=== PATIENT | male | born 1980 | race Caucasian/White ===

== ENCOUNTER 2016-09-08 20:15 | Emergency (ER) | payer BC ==
--- NOTE | 2016-09-09 09:42 | XR ---
EXAM TYPE: LUMBAR SPINE X RAY SERIES COMPARISON: 10/19/2014 HISTORY: Back pain TECHNIQUE: 4 views are submitted. FINDINGS: Alignment is anatomic. The pedicles are intact. The transverse processes are intact. There is susp icion of unilateral spondylolysis on the right. There is a grade 1 anterolisthesis. IMPRESSION: 1. Spondylolysis L5 with grade 1 anterolisthesis which is slightly progressed from the previous exam. Correlate with MRI.
== END 2016-09-08 22:26 | disposition home or self-care (01) ==
LOC: EC 20:15
DX: M54.5 Low back pain (principal); G89.29 Other chronic pain; X50.0XXA Overexertion from strenuous movement or load, initial encounter; Y92.009 Unspecified place in unspecified non-institutional (private) residence as the place of occurrence of the external cause; Y93.89 Activity, other specified
CPT/HCPCS: 72110; 99283

== ENCOUNTER 2016-10-19 18:16 | Emergency (ER) | payer BC ==
[2016-10-19 18:22] VITALS: BP 125/90; PULSE 90; RESP 18; TEMP 97.8
--- NOTE | 2016-10-19 18:43 | XR ---
EXAMINATION TYPE: XR hand complete RT DATE OF EXAM: 10/19/2016 COMPARISON: NONE HISTORY: Pain TECHNIQUE: 3 views FINDINGS: There is callus formation related to healing fracture of the fifth metacarpal head. There i s displacement of a few millimeters. There is no dislocation. Joint spaces are normal. IMPRESSION: There is a healing fracture of the distal fifth metacarpal with slight impaction. No acut e fracture seen.
--- NOTE | 2016-10-19 19:04 | ED ---
Upper Extremity HPI - General Chief Complaint: Extremity Injury, Upper Stated Complaint: RT HAND INJURY Time Seen by Provider: 10/19/16 18:26 Source: patient Mode of arrival: ambulatory Limitations: no limitations - History of Present Illness Initial Comments: Patient is a 36-year-old right-handed white male presenting to the emergency department with complaints of right hand pain. Patient has a history of a fifth metacarpal fracture and states he had his cast removed a week ago. Patient states he tripped over a dog cable this morning around 8 AM and fell on his right hand. Patient is currently complaining of pain to his fifth metacarpal related 6 out of 10, described as sharp, exacerbated with movement, relieved at rest. Patient states he took tramadol prior to arrival with minimal relief. Patient denies chills, fevers, nausea, vomiting, shortness of breath, chest pain, abdominal pain, numbness or tingling. - Related Data Previous Rx's Medication Instructions Recorded traMADol HCl [Ultram] 50 mg PO Q6H PRN #12 tab 10/19/16 Allergies Allergy/AdvReac Type Severity Reaction Status Date / Time No Known Allergies Allergy Verified 10/19/16 18:46 Review of Systems ROS Statement: Those systems with pertinent positive or pertinent negative responses have been documented in the HPI. ROS Other: All systems not noted in ROS Statement are negative. Past Medical History Past Medical History: No Reported History History of Any Multi-Drug Resistant Organisms: None Reported Past Surgical History: No Surgical Hx Reported Past Psychological History: No Psychological Hx Reported Smoking Status: Never smoker Past Alcohol Use History: Occasional Past Drug Use History: None Reported General Exam Limitations: no limitations General appearance: alert, in no apparent distress Head exam: Present: atraumatic, normocephalic, normal inspection Eye exam: Present: normal appearance ENT exam: Present: normal exam, mucous membranes moist, normal external ear exam Neck exam: Present: normal inspection, full ROM. Absent: tenderness Respiratory exam: Present: normal lung sounds bilaterally. Absent: respiratory distress, wheezes, rales, rhonchi, stridor Cardiovascular Exam: Present: regular rate, normal rhythm, normal heart sounds. Absent: systolic murmur, diastolic murmur, rubs, gallop, clicks GI/Abdominal exam: Present: soft, normal bowel sounds. Absent: distended, tenderness, guarding, rebound, rigid Right Elbow exam: Present: normal inspection, full ROM. Absent: tenderness, swelling Forearm Wrist exam: Present: normal inspection, full ROM. Absent: tenderness, swelling Hand Wrist exam: Present: full ROM, tenderness (Tenderness to distal fifth metacarpal). Absent: swelling, ecchymosis, deformity, erythema Neuro motor exam: Present: wrist extension intact, thumb opposition intact, thumb IP flexion intact, thumb adduction intact, fingers 2-5 abduction intact Neurosensory exam: Present: 2-point discrimination, radial nerve intact, ulnar nerve intact, median nerve intact Vascular: Present: normal capillary refill, radial pulse, brachial pulse, ulnar pulse. Absent: vascular compromise Back exam: Present: normal inspection Neurological exam: Present: alert, oriented X3, normal gait. Absent: other (No focal deficits noted) Psychiatric exam: Present: normal affect, normal mood Skin exam: Present: warm, dry, intact, normal color Course Vital Signs 10/19/16 18:19 Temperature 97.8 F Pulse Rate 90 Respiratory 18 Rate Blood Pressure 125/90 O2 Sat by Pulse 97 Oximetry Medical Decision Making - Medical Decision Making Right hand injury with history of recent fifth metacarpal fracture. Right and x -ray with evidence of healing fracture of the distal fifth metacarpal with slight impaction, no acute fracture seen. Mt wrap applied to right hand. Patient instructed to follow-up with orthopedic service next week as already scheduled. Patient agrees with treatment plan. Return parameters and discharge instructions reviewed. - Radiology Data Radiology results: report reviewed X-ray right hand: There is callus formation related to healing fracture of the fifth metacarpal head. There is displacement of a few millimeters. There is no dislocation. Joint spaces are normal. Impression: Healing fracture of the distal fifth metacarpal with slight impaction. No acute fracture seen. Disposition Clinical Impression: Injury of right hand Disposition: HOME SELF-CARE Condition: Good Instructions: Hand Fracture (ED) Additional Instructions: Continue tramadol for pain as needed. Follow-up with orthopedic service on Saturday as are the schedule. Return to the emergency department with any new or worsening symptoms. Prescriptions: traMADol HCl [Ultram] 50 mg PO Q6H PRN #12 tab PRN Reason: Pain Referrals: None,Stated [Primary Care Provider] - 1-2 days [facility] [Provider Group] - 10/23/16 Time of Disposition: 19:04
== END 2016-10-19 19:10 | disposition home or self-care (01) ==
LOC: EC 18:16
DX: S69.91XA Unspecified injury of right wrist, hand and finger(s), initial encounter (principal); Z87.81 Personal history of (healed) traumatic fracture; W01.0XXA Fall on same level from slipping, tripping and stumbling without subsequent striking against object, initial encounter
CPT/HCPCS: 99283

== ENCOUNTER → 2016-10-19 | Outpatient (CLI) | payer BC ==
--- NOTE | 2016-10-19 18:49 | CT ---
EXAMINATION TYPE: CT lumbar spine wo con DATE OF EXAM: 10/19/2016 6:09 PM COMPARISON: NONE HISTORY: Pt states of lower back pain. CT DLP: 903.5 mGycm Automated exposure control for dose reduction was used. Unenhanced CT of the lumbar spine was performed. Bone and soft tissue window settings are submitted as well as coronal and sagittal reconstructions. The lumbar vertebrae are fairly normal alignment. There is a few millimeter anterior subluxation of L 5 in relation S1. There is bilateral L5 spondylolysis. Disc spaces are normal. There is no compressio n fracture. The neural foramina appear widely patent. There is no paraspinal mass. Sacroiliac joints appear normal. There are small posterior disc bulges at L4-5 L5-S1 without compromise of the spinal c anal. There is developmentally large spinal canal and no sign of spinal stenosis. IMPRESSION: Small posterior disc bulging at L4-5 and L5-S1. No spinal stenosis. 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
== END | disposition home or self-care (01) ==
LOC: RADCTMAIN 17:50
PROVIDERS: ATTEND Physical Medicine & Rehabilitation
DX: M51.17 Intervertebral disc disorders with radiculopathy, lumbosacral region (principal); M43.17 Spondylolisthesis, lumbosacral region; M47.26 Other spondylosis with radiculopathy, lumbar region
CPT/HCPCS: 72131

== ENCOUNTER → 2018-01-14 | Outpatient (CLI) | payer BC ==
--- NOTE | 2018-01-14 15:44 | US ---
EXAMINATION TYPE: US kidneys/renal and bladder DATE OF EXAM: 01/14/2018 COMPARISON: NONE CLINICAL HISTORY: R31.21 Microscopic hematuria. EXAM MEASUREMENTS: Right Kidney: 10.9 x 4.6 x 4.5 cm Left Kidney: 11.9 x 5.7 x 4.8 cm Right Kidney: No hydronephrosis or masses seen Left Kidney: No hydronephrosis or masses seen Bladder: wnl as visualized, not fully distended. Bilateral Jets seen: No, jets not visualized, however bladder not fully distended. There is no evidence for hydronephrosis at this point in time. Cortical medullary differentiation is maintained. No nephrolithiasis is seen. No masses are identified. The urinary bladder is anechoic. IMPRESSION: Kidneys are unremarkable. Ureteral jets were not seen.
== END | disposition home or self-care (01) ==
LOC: RADUSWWP 14:58
PROVIDERS: ATTEND Family Medicine
DX: R31.21 Asymptomatic microscopic hematuria (principal)
CPT/HCPCS: 76770

== ENCOUNTER 2018-11-12 05:41 | Emergency (ER) | payer BC ==
[2018-11-12 05:55] VITALS: RESP 18; TEMP 97.7
[2018-11-12] MEDS ORDERED: KETOROLAC 30 MG/ML 1 ML VIAL IVP STA (06:15)
--- NOTE | 2018-11-12 06:20 | ED ---
Abdominal Pain HPI - General Chief Complaint: Abdominal Pain Stated Complaint: Male / Back Pain Time Seen by Provider: 11/12/18 06:03 Source: patient Mode of arrival: ambulatory Limitations: no limitations - History of Present Illness MD Complaint: abdominal pain, flank pain Onset/Timin -: hour(s) Location: LLQ, L flank Migration to: no migration Severity: severe Quality: sharp Consistency: constant Improves With: nothing Worsens With: nothing Associated Symptoms: denies other symptoms - Related Data Home Medications Medication Instructions Recorded Confirmed Dextroamphetamine/Amphetamine 15 mg PO AC-LUNCH 11/12/18 11/12/18 [Adderall] Dextroamphetamine/Amphetamine 30 mg PO DAILY 11/12/18 11/12/18 [Adderall] HYDROcodone/APAP 10-325MG [[place] 1 tab PO Q6HR PRN 11/12/18 11/12/18 10-325] Previous Rx's Medication Instructions Recorded Levofloxacin 750 mg PO DAILY #7 tablet 11/12/18 Tamsulosin [Flomax] 0.4 mg PO DAILY #14 cap 11/12/18 Allergies Allergy/AdvReac Type Severity Reaction Status Date / Time No Known Allergies Allergy Verified 11/12/18 06:59 Review of Systems ROS Statement: Those systems with pertinent positive or pertinent negative responses have been documented in the HPI. ROS Other: All systems not noted in ROS Statement are negative. Constitutional: Denies: fever, chills, weakness Respiratory: Denies: cough, dyspnea Cardiovascular: Denies: chest pain, palpitations, edema Gastrointestinal: Reports: as per HPI, abdominal pain. Denies: vomiting, diarrhea, constipation, melena, hematochezia Genitourinary: Denies: dysuria, hematuria, testicular pain, testicular mass Musculoskeletal: Denies: back pain Skin: Denies: rash Neurological: Denies: headache, weakness Past Medical History Past Medical History: No Reported History History of Any Multi-Drug Resistant Organisms: None Reported Past Surgical History: No Surgical Hx Reported Past Psychological History: No Psychological Hx Reported Smoking Status: Never smoker Past Alcohol Use History: Occasional Past Drug Use History: None Reported General Exam Limitations: no limitations General appearance: alert, in no apparent distress Head exam: Present: atraumatic, normocephalic Eye exam: Present: normal appearance. Absent: scleral icterus, conjunctival injection ENT exam: Present: normal oropharynx Respiratory exam: Present: normal lung sounds bilaterally. Absent: respiratory distress, wheezes, rales, rhonchi, stridor Cardiovascular Exam: Present: regular rate, normal rhythm, normal heart sounds. Absent: systolic murmur, diastolic murmur, rubs, gallop GI/Abdominal exam: Present: soft. Absent: distended, tenderness, guarding, rebound, rigid, mass Extremities exam: Present: normal inspection, normal capillary refill. Absent: pedal edema, calf tenderness Back exam: Present: normal inspection. Absent: CVA tenderness (R), CVA tenderness (L) Neurological exam: Present: alert Skin exam: Present: warm, dry, intact, normal color. Absent: rash Course Vital Signs 11/12/18 11/12/18 11/12/18 05:52 06:55 07:16 Temperature 97.7 F Pulse Rate 62 78 78 Respiratory 18 18 18 Rate Blood Pressure 102/66 124/80 123/72 O2 Sat by Pulse 100 100 100 Oximetry Medical Decision Making - Lab Data Result diagrams: 11/12/18 06:14 11/12/18 06:14 Lab Results 11/12/18 11/12/18 11/12/18 Range/Units 06:14 06:14 06:14 WBC 5.9 (3.8-10.6) k/uL RBC 4.55 (4.30-5.90) m/uL Hgb 13.9 (13.0-17.5) gm/dL Hct 41.8 (39.0-53.0) % MCV 91.9 (80.0-100.0) fL MCH 30.7 (25.0-35.0) pg MCHC 33.4 (31.0-37.0) g/dL RDW 14.4 (11.5-15.5) % Plt Count 356 (150-450) k/uL Neutrophils % 49 % Lymphocytes % 39 % Monocytes % 6 % Eosinophils % 2 % Basophils % 1 % Neutrophils # 2.9 (1.3-7.7) k/uL Lymphocytes # 2.3 (1.0-4.8) k/uL Monocytes # 0.4 (0-1.0) k/uL Eosinophils # 0.1 (0-0.7) k/uL Basophils # 0.1 (0-0.2) k/uL Sodium 141 (137-145) mmol/L Potassium 4.0 (3.5-5.1) mmol/L Chloride 107 (98-107) mmol/L Carbon Dioxide 24 (22-30) mmol/L Anion Gap 10 mmol/L BUN 11 (9-20) mg/dL Creatinine 0.65 L (0.66-1.25) mg/dL Est GFR (CKD-EPI)AfAm >90 (>60 ml/min/1.73 sqM) Est GFR (CKD-EPI)NonAf >90 (>60 ml/min/1.73 sqM) Glucose 91 (74-99) mg/dL Calcium 9.1 (8.4-10.2) mg/dL Total Bilirubin 0.4 (0.2-1.3) mg/dL AST 16 L (17-59) U/L ALT 18 L (21-72) U/L Alkaline Phosphatase 55 (38-126) U/L Total Protein 6.7 (6.3-8.2) g/dL Albumin 4.1 (3.5-5.0) g/dL Amylase 58 (30-110) U/L Lipase 87 (23-300) U/L Urine Color Light Red Urine Appearance Cloudy (Clear) Urine pH 5.5 (5.0-8.0) Ur Specific [place] 1.024 (1.001-1.035) Urine Protein 1+ H (Negative) Urine Glucose (UA) Negative (Negative) Urine Ketones Trace H (Negative) Urine Blood Moderate H (Negative) Urine Nitrite Negative (Negative) Urine Bilirubin Negative (Negative) Urine Urobilinogen <2.0 (<2.0) mg/dL Ur Leukocyte Esterase Negative (Negative) Urine RBC >182 H (0-5) /hpf Urine WBC 25 H (0-5) /hpf Urine Mucus Many H (None) /hpf Disposition Clinical Impression: Calculus of kidney Disposition: HOME SELF-CARE Condition: Good Instructions (If sedation given, give patient instructions): Kidney Stones (ED) Additional Instructions: There is a small lung nodule identified on the computed tomography scan. This should be rechecked with a CAT scan an approximately 3 months. Prescriptions: Tamsulosin [Flomax] 0.4 mg PO DAILY #14 cap Levofloxacin 750 mg PO DAILY #7 tablet Is patient prescribed a controlled substance at d/c from ED?: No Referrals: Guido Estrada MD [Primary Care Provider] - 1-2 days Cuco De La Cruz MD [STAFF PHYSICIAN] - 1-2 days
[2018-11-12 06:24] LABS: Basophils # (A) 0.1 k/uL (0-0.2); Basophils % (A) 1 %; Eosinophils # (A) 0.1 k/uL (0-0.7); Eosinophils % (A) 2 %; HCT 41.8 % (39.0-53.0); HGB 13.9 gm/dL (13.0-17.5); Lymphocytes # (A) 2.3 k/uL (1.0-4.8); Lymphocytes % (A) 39 %; MCH 30.7 pg (25.0-35.0); MCHC 33.4 g/dL (31.0-37.0); MCV 91.9 fL (80.0-100.0); Mean Platelet Volume 7.3; Monocytes # (A) 0.4 k/uL (0-1.0); Monocytes % (A) 6 %; Neutrophils # (A) 2.9 k/uL (1.3-7.7); Neutrophils % (A) 49 %; Platelet Count 356 k/uL (150-450); RBC 4.55 m/uL (4.30-5.90); RDW 14.4 % (11.5-15.5); WBC 5.9 k/uL (3.8-10.6)
[2018-11-12 06:28] LABS: Appearance,Urine Cloudy (Clear); Bilirubin,Urine Negative (Negative); Blood,Urine Moderate (Negative); Color,Urine Light Red; Glucose,Urine (UA) Negative (Negative); Ketones,Urine Trace (Negative); Leukocyte Esterase,Urine Negative (Negative); Mucus,Urine Many /hpf; Nitrite,Urine Negative (Negative); PH, Urine 5.5 (5.0-8.0); Protein,Urine 1+ (Negative); RBC,Urine >182 /hpf (0-5); Specific Gravity,Urine 1.024 (1.001-1.035); Urobilinogen,Urine <2.0 mg/dL (<2.0); WBC,Urine 25 /hpf (0-5)
[2018-11-12 06:33] LABS: ALT 18 U/L (21-72); AST 16 U/L (17-59); African American GFR (CKD) >90 (>60 ml/min/1.73 sqM); Albumin 4.1 g/dL (3.5-5.0); Alkaline Phosphatase 55 U/L (38-126); Amylase 58 U/L (30-110); Anion Gap 10 mmol/L; Blood Urea Nitrogen 11 mg/dL (9-20); Calcium 9.1 mg/dL (8.4-10.2); Carbon Dioxide 24 mmol/L (22-30); Chloride 107 mmol/L (98-107); Glucose 91 mg/dL (74-99); Lipase 87 U/L (23-300); Sodium 141 mmol/L (137-145); Total Bilirubin 0.4 mg/dL (0.2-1.3); Total Protein 6.7 g/dL (6.3-8.2)
--- NOTE | 2018-11-12 06:45 | XR ---
EXAM: XR Abdomen, 1 View CLINICAL HISTORY: ITS.REASON XR Reason: abdominal pain TECHNIQUE: Frontal supine view of the abdomen/pelvis. COMPARISON: No relevant prior studies available. FINDINGS: Gastrointestinal tract: Copious amounts of stool throughout the colon and rectum. No dilation. Bones/joints: No acute fracture. No dislocation. IMPRESSION: No acute findings. Correlate with constipation.
[2018-11-12] MEDS ORDERED: MORPHINE SULFATE 4 MG/ML SYRINGE IV STA (06:47)
[2018-11-12 06:55] VITALS: PULSE 78
[2018-11-12 07:18] VITALS: BP 123/72
[2018-11-12] MEDS ORDERED: TAMSULOSIN 0.4 MG CAP.ER.24H PO STA (07:22)
--- NOTE | 2018-11-12 07:23 | CT ---
EXAM: CT Abdomen and Pelvis Without Intravenous Contrast CLINICAL HISTORY: ITS.REASON CT Reason: stone protocol, L flank pain TECHNIQUE: Axial computed tomography images of the abdomen and pelvis without intravenous contrast. CTDI is 7.1 mGy and DLP is 413.9 mGy-cm. This CT exam was performed using one or more of the following dose reduction techniques: automated exposure control, adjustment of the mA and/or kV according to patient size, and/or use of iterative reconstruction technique. COMPARISON: No relevant prior studies available. FINDINGS: Lung bases: 3 mm pleural-based solid pulmonary nodule in the left lower lobe (series 11 image 201). ABDOMEN: Liver: Unremarkable. Gallbladder and bile ducts: Unremarkable. No calcified stones. No ductal dilation. Pancreas: Unremarkable. No ductal dilation. Spleen: Unremarkable. No splenomegaly. Adrenals: Unremarkable. No mass. Kidneys and ureters: 3 mm phlebolith versus distal left ureteral calculus without hydronephrosis. Stomach and bowel: Unremarkable. No obstruction. No mucosal thickening. PELVIS: Appendix: Appendix is not identified with certainty. Please correlate with surgical history. Bladder: Unremarkable. No stones. Reproductive: Unremarkable as visualized. ABDOMEN and PELVIS: Intraperitoneal space: Unremarkable. No free air. No significant fluid collection. Bones/joints: Bilateral pars defects at L5 with minimal grade 1 anterolisthesis of L5 on S1. Soft tissues: Small fat-containing umbilical hernia. Vasculature: Unremarkable. No abdominal aortic aneurysm. Lymph nodes: Unremarkable. No enlarged lymph nodes. IMPRESSION: 1. 3 mm pleural-based solid pulmonary nodule in the left lower lobe (series 11 image 201). ACR White Paper guidelines (DuMahon, et al. Radiology 2017; 284(1):228-43) suggest the following. For low-risk patients, no follow-up is necessary. For high-risk patients (smoking history or other known risk factors) an optional chest CT at 12 months could be performed. 2. 3 mm phlebolith versus distal left ureteral calculus without hydronephrosis.
[2018-11-12] MEDS ORDERED: MORPHINE SULFATE 2 MG/ML SYRINGE IVP STA (07:38)
== END 2018-11-12 07:50 | disposition home or self-care (01) ==
LOC: EC 05:41
DX: N20.0 Calculus of kidney (principal); Z79.899 Other long term (current) drug therapy
CPT/HCPCS: 36415; 74018; 74176; 80053; 81001; 82150; 83690; 85025; 96374; 96375; 96376; 99284